=== PATIENT | male | born 1950 | race Caucasian/White ===

== ENCOUNTER → 2016-10-26 | Outpatient (CLI) | payer OTHER, MEDICARE | LOC: HEART 5 10:25 | DX: J60 Coalworker's pneumoconiosis (principal); R94.2 Abnormal results of pulmonary function studies | CPT/HCPCS: 94060; 94729 ==

== ENCOUNTER → 2016-10-26 | Outpatient (CLI) | payer OTHER, MEDICARE | LOC: KOH-I 09:38 | DX: J60 Coalworker's pneumoconiosis (principal); R91.8 Other nonspecific abnormal finding of lung field | CPT/HCPCS: 71250 ==

== ENCOUNTER → 2020-09-08 | Outpatient (CLI) | payer MEDICARE ==
[~2020-09-08] MED LIST: AMBIEN5 MG PO; ASPIR-LOW81 MG PO; ASPIRIN 325MG325 MG PO; BREO ELLIPTA 11 EACH INH; ENTRESTO 24 MG1 EACH PO; ENTRESTO 49 MG1 EACH PO; FUROSEMIDE40 MG PO; HYDROCODON-ACE1 EAC2 PO; INCRUSE ELLI62.5 MCG INH; IPRAT-ALBUT 0.5-3 ML INH; LEVAQUIN500 MG PO; LIPITOR TAB 2020 MG PO; LORTAB 7.5-3251 EACH PO; METOPROLOL SUCC25 MG PO; NEURONTIN 300300 MG PO; NORCO 7.5-3251 EACH PO; PRINIVIL5 MG PO; SPIRIVA RESPIMAT4 GM INH; SPIRIVA18 MCG INH; ULTRAM50 MG PO; VOLTAREN EC 5050 MG PO; VOLTAREN GEL TD; VOLTAREN100 GM TP; XOPENEX HFA15 GM INH; XOPENEX0.63 MG/3 INH; XOPENEX1.25 MG/3 INH
== END ==
LOC: HEART 5 13:26
DX: I50.22 Chronic systolic (congestive) heart failure (principal); I42.0 Dilated cardiomyopathy; I27.20 Pulmonary hypertension, unspecified; I08.2 Rheumatic disorders of both aortic and tricuspid valves
CPT/HCPCS: 93306